=== PATIENT | male | born 1935 | race African-American/Black ===

== ENCOUNTER 2017-03-12 09:46 | Day surgery (SDC) | payer OTHER ==
[~2017-03-12 09:46] MED LIST: 1-ME1LIQ PO; FINA5TAB77 PO; HYDR-3534 PO; PROSTATE MED PO; THYRPOW PO
[2017-03-12 11:08] VITALS: BP 162/69; PULSE 48; RESP 14; TEMP 97.7; O2SAT 91
[2017-03-12] MEDS ORDERED: LIDOCAINE HCL 1% PF 30 ML VIAL ONE (12:04)
[2017-03-12 12:05] VITALS: BP 162/70; PULSE 53; RESP 20; TEMP 97.6; O2SAT 97
[2017-03-12 12:20] VITALS: BP 148/65; PULSE 50; RESP 18; O2SAT 98
--- NOTE | 2017-03-12 12:55 | RADRPT ---
EXAM DATE/TIME: 03/12/2017 10:44 [facility] COMPARISON: No previous studies available for comparison. EXTERNAL COMPARISON: [facility], CT SOFT TISSUE NECK W/ CONTRAST, Jan 15 2017. INDICATIONS : Parotid gland mass. MEDICAL HISTORY : Hypercholesterolemia. Hypertension. Chest pain. Hypothyroidism. Pneumonia. BPH. Osteoarthritis. SURGICAL HISTORY : Appendectomy. ENCOUNTER: Initial ACUITY: 2 months PAIN SCORE: 1/10 LOCATION: Right neck ORGAN: Right parotid gland SPECIMENS: One core specimen(s) submitted for pathologic evaluation. DEVICE: 18 gauge Bio Pince needle Post procedure scanning reveals no hematoma or other complication. The possibility does exist that the tissue obtained will be non-diagnostic. If the sample is non-sandip gnostic a repeat biopsy or surgical biopsy may need to be performed. TECHNIQUE: 1. Ultrasound guidance for needle biopsy. 2. Needle biopsy. The risks, benefits, and alternatives to ultrasound guided needle biopsy were explained to the patien t in detail including the risk of bleeding and infection. Written and verbal informed consent was ob tained. With the patient on the ultrasound table, images were obtained. Overlying skin was prepped and drape d in the usual sterile fashion and Lidocaine was utilized as a local anesthetic. Lesion was predominantly cystic ultrasound. A 18 gauge needle was advanced through the skin into the lesion. Approximately 5 cc of fluid was aspirated with collapse of the lesion. The residual portion o f the lesion was then biopsied with a BioPince biopsy gun. Only small fragments of tissue returned. T he fluid was sent for cytology as well as culture and sensitivity. The small tissue samples were sent in formalin for pathologic. The patient tolerated the procedure well and left the ultrasound suite in stable condition. CONCLUSION: Uncomplicated ultrasound guided aspiration and biopsy of a cystic right neck mass. Demian Castillo MD on March 12, 2017 at 12:51 Board Certified Radiologist. This report was verified electronically.
== END 2017-03-12 12:30 | disposition home or self-care (01) ==
LOC: HRAD 09:46 → HRIP 09:47 → HRAD 12:30
PROVIDERS: ATTEND Family Medicine
DX: R22.1 Localized swelling, mass and lump, neck (principal); I10 Essential (primary) hypertension; E78.00 Pure hypercholesterolemia, unspecified; R07.9 Chest pain, unspecified; E03.9 Hypothyroidism, unspecified
CPT/HCPCS: 42400; 76942; 87070; 87205; 88112; 88305; 88307

== ENCOUNTER 2017-09-28 14:03 | Emergency (ER) | payer OTHER ==
[~2017-09-28] VITALS: Ht 172.7 cm; Wt 65.0 kg
[2017-09-28 14:05] VITALS: BP 167/68; PULSE 71; RESP 17; TEMP 98; O2SAT 100
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
[2017-09-28] MEDS ORDERED: HYDR-3288 PO (15:38)
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
== END 2017-09-28 15:59 | disposition home or self-care (01) ==
LOC: NEPK 14:03
DX: S39.012A Strain of muscle, fascia and tendon of lower back, initial encounter (principal); V89.2XXA Person injured in unspecified motor-vehicle accident, traffic, initial encounter
CPT/HCPCS: 72100; 99283